=== PATIENT | male | born 1965 | race Caucasian/White ===

== ENCOUNTER 2017-06-26 12:40 | Emergency (ER) | payer OTHER ==
--- NOTE | 2017-06-26 12:56 | EDM.PDOC ---
ED HPI GENERAL MEDICAL PROBLEM - General Chief Complaint: Abdominal Pain Stated Complaint: ABDOMINAL PAIN Time Seen by Provider: 06/26/17 12:49 Source of Information: Reports: Patient, Family, RN, RN Notes Reviewed History Limitations: Reports: No Limitations - History of Present Illness INITIAL COMMENTS - FREE TEXT/NARRATIVE: Porter is a 52 yo male who presents to the ED due to generalized abd pain that started around 1600 yesterday. Describes the pain as constant and stabbing pain. Reports slight nausea off and on. Denies emesis. Reports that he took a stool softener at home as he thought he maybe constipated. He reports that he had a BM after but his pain did not improve. He reports that his gave him an antacid and some aspirin which helped for about an hour, but then symptoms returned. Denies chest pain, shortness of breath, sore throat, fever, blood in his stools, or diarrhea. Onset Date: 06/25/17 Onset Time: 16:30 Duration: Constant, Getting Worse Location: Reports: Abdomen Quality: Reports: Burning, Stabbing Severity: Severe Improves with: Reports: Medication Worsens with: Reports: None Associated Symptoms: Reports: Loss of Appetite, Nausea/Vomiting Middle Abdominal Pain Score (Numeric/FACES): 9 - Related Data Allergies Allergy/AdvReac Type Severity Reaction Status Date / Time No Known Allergies Allergy Verified 06/26/17 12:48 Home Meds: Home Meds . [No Known Home Meds] 06/26/17 [History] Past Medical History - Past Health History Medical/Surgical History: Denies Medical/Surgical History Social & Family History - Family History Family Medical History: Noncontributory - Tobacco Use Smoking Status *Q: Never Smoker - Living Situation & Occupation Living situation: Reports: Occupation: Employed ED ROS GENERAL - Review of Systems Review Of Systems: ROS reveals no pertinent complaints other than HPI. ED EXAM, GI/ABD - Physical Exam Exam: See Below Exam Limited By: No Limitations General Appearance: Alert, Moderate Distress, Other (Patient noted to be curled up on the bed on assessment appears uncomfortable ) Eyes: Bilateral: Normal Appearance Ears: Normal External Exam, Normal Canal, Hearing Grossly Normal, Normal TMs Nose: Normal Inspection, Normal Mucosa, No Blood Throat/Mouth: Normal Inspection, Normal Lips, Normal Teeth, Normal Gums, Normal Oropharynx, Normal Voice, No Airway Compromise Head: Atraumatic, Normocephalic Neck: Normal Inspection, Supple, Non-Tender, Full Range of Motion Respiratory/Chest: No Respiratory Distress, Lungs Clear, Normal Breath Sounds, No Accessory Muscle Use, Chest Non-Tender Cardiovascular: Normal Peripheral Pulses, Regular Rate, Rhythm, No Edema, No Gallop, No JVD, No Murmur, No Rub GI/Abdominal Exam: Normal Bowel Sounds, Soft, No Organomegaly, No Distention, No Abnormal Bruit, No Mass, Tender (Generalized tenderness noted to abd with palpation) (Male) Exam: Deferred Rectal (Males) Exam: Deferred Back Exam: Normal Inspection, Full Range of Motion, NT Extremities: Normal Inspection, Normal Range of Motion, Non-Tender, Normal Capillary Refill, No Pedal Edema Neurological: Alert, Oriented, CN II-XII Intact, Normal Cognition, Normal Gait, Normal Reflexes, No Motor/Sensory Deficits Psychiatric: Normal Affect, Normal Mood Skin Exam: Warm, Dry, Intact, Normal Color, No Rash Lymphatic: No Adenopathy Course - Vital Signs Last Recorded V/S: Last Vital Signs Temp 36.1 C 06/26/17 14:37 Pulse 94 06/26/17 14:37 Resp 18 06/26/17 14:37 BP 138/60 06/26/17 14:37 Pulse Ox 100 06/26/17 14:37 - Orders/Labs/Meds Orders: Active Orders 24 hr Category Date Time Status Peripheral IV Care [RC] . DIRECTED Care 06/26/17 12:59 Active Abdomen Pelvis w Cont [CT] Urgent Exams 06/26/17 13:43 Taken HYDROmorphone [Dilaudid] Med 06/26/17 14:54 Once 1 mg IVPUSH ONETIME ONE Piperacillin/Tazobactam [Zosyn] 3.375 gm Med 06/26/17 14:33 Active Sodium Chloride 0.9% [Normal Saline] 100 ml IV ONETIME Sodium Chloride 0.9% @ 150 MLS/HR (1000ml) Med 06/26/17 15:00 Ordered Sodium Chloride 0.9% [Normal Saline] 1,000 ml IV ASDIRECTED Sodium Chloride 0.9% [Saline Flush] Med 06/26/17 12:59 Active 10 ml FLUSH ASDIRECTED PRN Peripheral IV Insertion Adult [OM.PC] Stat Oth 06/26/17 12:58 Ordered Medication Orders Piperacillin Sod/Tazobactam (Sod 3.375 gm/ Sodium Chloride) 100 mls @ 200 mls/ hr IV ONETIME ONE Stop: 06/26/17 15:02 Sodium Chloride (Saline Flush) 10 ml FLUSH ASDIRECTED PRN PRN Reason: Keep Vein Open Last Admin: 06/26/17 13:07 Dose: 10 ml Labs: Laboratory Tests 06/26/17 06/26/17 06/26/17 Range/Units 12:43 13:09 13:09 WBC 10.3 H (5.0-10.0) 10^3/uL RBC 5.62 (4.6-6.2) 10^6/uL Hgb 17.7 (14.0-18.0) g/dL Hct 49.2 (40.0-54.0) % MCV 87.5 (80-100) fL MCH 31.5 (27.0-34.0) pg MCHC 36.0 H (33.0-35.0) g/dL Plt Count 161 (150-450) 10^3/uL Neut % (Auto) 77.3 H (42.2-75.2) % Lymph % (Auto) 13.9 L (20.5-50.1) % Antelope % (Auto) 7.5 (2-8) % Eos % (Auto) 1.1 (1.0-3.0) % Baso % (Auto) 0.2 (0.0-1.0) % Sodium 138 (135-145) mmol/L Potassium 3.8 (3.6-5.0) mmol/L Chloride 102 (101-111) mmol/L Carbon Dioxide 27.0 (21.0-31.0) mmol/L Anion Gap 12.8 BUN 16 (7-18) mg/dL Creatinine 1.1 (0.6-1.3) mg/dL Est Cr Clr Drug Dosing 83.67 mL/min Estimated GFR (MDRD) > 60 BUN/Creatinine Ratio 14.54 Glucose 102 (74-105) mg/dL Lactic Acid (0.5-2.2) mmol/L Calcium 9.2 (8.4-10.2) mg/dl Total Bilirubin 1.7 H (0.2-1.0) mg/dL AST 44 H (10-42) IU/L ALT 103 H (10-60) IU/L Alkaline Phosphatase 75 (42-121) IU/L Total Protein 7.2 (6.7-8.2) g/dl Albumin 4.4 (3.2-5.5) g/dl Globulin 2.8 Albumin/Globulin Ratio 1.57 Amylase 52 (28-100) U/L Lipase 20 L (22-51) U/L Urine Color Straw (YELLOW) Urine Appearance Clear (CLEAR) Urine pH 5.5 (5.0-9.0) Ur Specific Beatty 1.025 (1.005-1.030) Urine Protein Trace H (NEGATIVE) Urine Glucose (UA) Negative (NEGATIVE) Urine Ketones 15 H (NEGATIVE) Urine Occult Blood Negative (NEGATIVE) Urine Nitrite Negative (NEGATIVE) Urine Bilirubin Small H (NEGATIVE) Urine Urobilinogen 0.2 (0.2-1.0) mg/dL Ur Leukocyte Esterase Negative (NEGATIVE) Urine RBC Not seen /HPF Urine WBC Not seen (0-5/HPF) /HPF Ur Epithelial Cells Rare /HPF Amorphous Sediment Rare (0/HPF) /HPF Urine Bacteria Not seen (0-FEW/HPF) /HPF Fine Granular Casts Few H (0/LPF) /LPF Urine Mucus Many H /LPF /12/06 Range/Units 13:09 WBC (5.0-10.0) 10^3/uL RBC (4.6-6.2) 10^6/uL Hgb (14.0-18.0) g/dL Hct (40.0-54.0) % MCV (80-100) fL MCH (27.0-34.0) pg MCHC (33.0-35.0) g/dL Plt Count (150-450) 10^3/uL Neut % (Auto) (42.2-75.2) % Lymph % (Auto) (20.5-50.1) % Antelope % (Auto) (2-8) % Eos % (Auto) (1.0-3.0) % Baso % (Auto) (0.0-1.0) % Sodium (135-145) mmol/L Potassium (3.6-5.0) mmol/L Chloride (101-111) mmol/L Carbon Dioxide (21.0-31.0) mmol/L Anion Gap BUN (7-18) mg/dL Creatinine (0.6-1.3) mg/dL Est Cr Clr Drug Dosing mL/min Estimated GFR (MDRD) BUN/Creatinine Ratio Glucose (74-105) mg/dL Lactic Acid 1.2 (0.5-2.2) mmol/L Calcium (8.4-10.2) mg/dl Total Bilirubin (0.2-1.0) mg/dL AST (10-42) IU/L ALT (10-60) IU/L Alkaline Phosphatase (42-121) IU/L Total Protein (6.7-8.2) g/dl Albumin (3.2-5.5) g/dl Globulin Albumin/Globulin Ratio Amylase (28-100) U/L Lipase (22-51) U/L Urine Color (YELLOW) Urine Appearance (CLEAR) Urine pH (5.0-9.0) Ur Specific Beatty (1.005-1.030) Urine Protein (NEGATIVE) Urine Glucose (UA) (NEGATIVE) Urine Ketones (NEGATIVE) Urine Occult Blood (NEGATIVE) Urine Nitrite (NEGATIVE) Urine Bilirubin (NEGATIVE) Urine Urobilinogen (0.2-1.0) mg/dL Ur Leukocyte Esterase (NEGATIVE) Urine RBC /HPF Urine WBC (0-5/HPF) /HPF Ur Epithelial Cells /HPF Amorphous Sediment (0/HPF) /HPF Urine Bacteria (0-FEW/HPF) /HPF Fine Granular Casts (0/LPF) /LPF Urine Mucus /LPF Meds: Medications Generic Name Dose Route Start Last Admin Trade Name Freq PRN Reason Stop Dose Admin Piperacillin Sod/Tazobactam 100 mls @ 200 mls/hr 06/26/17 14:33 Sod 3.375 gm/ Sodium Chloride IV 06/26/17 15:02 ONETIME ONE Sodium Chloride 10 ml 06/26/17 12:59 06/26/17 13:07 Saline Flush FLUSH 10 ml ASDIRECTED PRN Administration Keep Vein Open Discontinued Medications Generic Name Dose Route Start Last Admin Trade Name Freq PRN Reason Stop Dose Admin Hydromorphone HCl 1 mg 06/26/17 13:01 06/26/17 13:06 Dilaudid IVPUSH 06/26/17 13:02 1 mg ONETIME ONE Administration Hydromorphone HCl 1 mg 06/26/17 13:55 06/26/17 13:58 Dilaudid IVPUSH 06/26/17 13:56 1 mg ONETIME ONE Administration Sodium Chloride 1,000 mls @ 999 mls/hr 06/26/17 13:00 06/26/17 13:06 Normal Saline IV 06/26/17 14:00 999 mls/hr .BOLUS ONE Administration Iopamidol 100 ml 06/26/17 13:44 06/26/17 14:05 Isovue-300 (61%) IVPUSH 06/26/17 13:45 100 ml ONETIME ONE Administration Ondansetron HCl 4 mg 06/26/17 13:00 06/26/17 13:07 Zofran IV 06/26/17 13:01 4 mg ONETIME ONE Administration Ondansetron HCl 4 mg 06/26/17 14:42 Zofran IV 06/26/17 14:43 ONETIME ONE - Radiology Interpretation Free Text/Narrative:: CT Abd/Pelvis with IV contrast: acute appendicitis per Radiologist report. CT Results Date: 06/26/17 CT Results Time: 14:34 Departure - Departure Time of Disposition: 14:52 Disposition: DC/Tfer to [facility] Condition: Fair Clinical Impression: Strep pharyngitis, Elevated liver enzymes Appendicitis Qualifiers: Appendicitis type: acute appendicitis Acute appendicitis type: unspecified acute appendicitis type Qualified Code(s): K35.80 - Unspecified acute appendicitis - Discharge Information Referrals: Souleymane Bowen MD [Primary Care Provider] - Forms: ED Department Discharge, Interfacility Transfer EMTALA - My Orders Last 24 Hours: My Active Orders 06/26/17 12:58 Peripheral IV Insertion Adult [OM.PC] Stat 06/26/17 12:59 Peripheral IV Care [RC] . DIRECTED Sodium Chloride 0.9% [Saline Flush] 10 ml FLUSH ASDIRECTED PRN 06/26/17 13:43 Abdomen Pelvis w Cont [CT] Urgent 06/26/17 14:33 Piperacillin/Tazobactam [Zosyn] 3.375 gm Sodium Chloride 0.9% [Normal Saline] 100 ml IV ONETIME 06/26/17 14:54 HYDROmorphone [Dilaudid] 1 mg IVPUSH ONETIME ONE 06/26/17 15:00 Sodium Chloride 0.9% @ 150 MLS/HR (1000ml) Sodium Chloride 0.9% [Normal Saline] 1,000 ml IV ASDIRECTED - Assessment/Plan Last 24 Hours: My Active Orders 06/26/17 12:58 Peripheral IV Insertion Adult [OM.PC] Stat 06/26/17 12:59 Peripheral IV Care [RC] . DIRECTED Sodium Chloride 0.9% [Saline Flush] 10 ml FLUSH ASDIRECTED PRN 06/26/17 13:43 Abdomen Pelvis w Cont [CT] Urgent 06/26/17 14:33 Piperacillin/Tazobactam [Zosyn] 3.375 gm Sodium Chloride 0.9% [Normal Saline] 100 ml IV ONETIME 06/26/17 14:54 HYDROmorphone [Dilaudid] 1 mg IVPUSH ONETIME ONE 06/26/17 15:00 Sodium Chloride 0.9% @ 150 MLS/HR (1000ml) Sodium Chloride 0.9% [Normal Saline] 1,000 ml IV ASDIRECTED
[2017-06-26] MEDS ORDERED: Sodium Chloride 0.9% 10 ML Syringe FLUSH PRN (12:59)
[2017-06-26] MEDS ORDERED: Ondansetron 4 MG/2 ML SDV IV ONE (13:00)
[2017-06-26] MEDS ORDERED: Sodium Chloride 0.9% 1,000 ML IV ONE (13:00)
[2017-06-26] MEDS ORDERED: HYDROmorphone 0.5 MG/0.5 ML Syringe IVPUSH ONE ×3 (13:01→14:54)
[2017-06-26 13:35] LABS: ANION GAP 12.8; CHLORIDE,CL 102 mmol/L (101-111); SODIUM,NA 138 mmol/L (135-145)
[2017-06-26] MEDS ORDERED: Iopamidol 612 MG/ML 100 ML Bottle IVPUSH ONE (13:44)
[2017-06-26] MEDS ORDERED: Piperacillin/Tazobactam 3.375 GM in Sodium Chloride 0.9% 100 ML IV ONE (14:33)
[2017-06-26] MEDS: Ondansetron 4 MG/2 ML SDV IV ONE ×2 (14:54→14:56)
[2017-06-26] MEDS ORDERED: Sodium Chloride 0.9% 1,000 ML IV SCH (15:00)
--- NOTE | 2017-06-26 15:10 | CT ---
CLINICAL HISTORY: 52-year-old 220 pound male experiencing periumbilical pain that goes to the pelvis (WBC 10,300). SCAN TECHNIQUE: Volume acquisition of data from an emergency CT scan of the abdomen and pelvis obtain ed without oral contrast but during the intravenous administration 100 cc nonionic Isovue contrast (3 cc/sec via injector) while the patient was lying supine on the Siemens multislice scanner [place], [place]. All data archived in the PACS system for storage, reformatting axial/sagittal/coronal planes and study. INTERPRETATION: Abnormal. 1. *Long distended appendix lower mid abdomen with several calcifications impacted at the origin from the cecum (most optimally defined on coronal images #35, axial scan image #58, sagittal #46) extends down to the top of the urinary bladder, midline pelvis. 2. Appendix measures 12 mm in greatest diameter and is associated with subtle inflammatory "dirty" pe ritoneal fat in the RLQ. No periappendiceal abscess or mechanical SBO. No sign of ascites or free in traperitoneal air. 3. Fatty liver and borderline splenomegaly. Normal gallbladder, stomach, pancreas, adrenal glands and kidneys. Normal heart. 4. Atheromatous calcification scattered across normal caliber aortoiliac vessels. No sign of aneurysm or retroperitoneal dissection. 5. Lung bases clear. Prostate and seminal vesicles unremarkable. CONCLUSION: Appendicoliths and acute appendicitis. NOTE: Emergency room provider called with report 1430 hours, 26 June 2017.
== END 2017-06-26 15:33 ==
LOC: DL.ED 12:40
DX: K35.80 Unspecified acute appendicitis (principal); J02.0 Streptococcal pharyngitis; R74.8 Abnormal levels of other serum enzymes
CPT/HCPCS: 36415; 74177; 80053; 81001; 82150; 83605; 83690; 85025; 87430; 96361; 96365; 96375; 96376; 99285; J1170; J2405; J2543; J7030; J7050; Q9967

== ENCOUNTER 2022-08-25 02:57 | Emergency (ER) | payer OTHER ==
[2022-08-25] MEDS ORDERED: Aspirin 81 MG Tab.Chew PO ONE ×2 (03:12→03:20)
[2022-08-25] MEDS ORDERED: Nitroglycerin 0.4 MG Tab.SL SL ONE ×3 (03:14→03:31)
[2022-08-25 03:25] LABS: BASOPHILS PERCENT AUTO 0.5 % (0.0-1.0); EOSINOPHILS PERCENT AUTO 3.3 % (1.0-3.0); HEMATOCRIT 49.7 % (40.0-54.0); HEMOGLOBIN 17.5 g/dL (14.0-18.0); LYMPHOCYTES PERCENT AUTO 39.8 % (20.5-50.1); MEAN CORPUSCULAR HEMOGLOBIN 31.3 pg (27.0-34.0); MEAN CORPUSCULAR HGB CONC 35.2 g/dL (33.0-35.0); MEAN CORPUSCULAR VOLUME 88.8 fL (80-100); MONOCYTES PERCENT AUTO 10.8 % (2-8); NEUTROPHILS PERCENT AUTO 45.6 % (42.2-75.2); PLATELET COUNT,PLT 180 10^3/uL (150-450); WHITE BLOOD CELL COUNT,WBC 6.6 10^3/uL (5.0-10.0)
[2022-08-25 03:37] LABS: B-TYPE NATRIURETIC PEPTIDE,BNP < 5 pg/ml (0-100)
[2022-08-25] MEDS ORDERED: GI Cocktail Oral Solution 30 ML PO ONE (03:37)
[2022-08-25 03:49] LABS: A/G RATIO 1.3; ALANINE AMINOTRANSFERASE,ALT 82 U/L (16-63); ALBUMIN 4.4 g/dL (3.4-5.0); ALKALINE PHOSPHATASE 101 U/L (46-116); AMYLASE 62 U/L (25-115); ANION GAP 11.8 mEq/L (7-13); ASPARTATE AMNIOTRANSFERASE,AST 33 U/L (15-37); BILIRUBIN TOTAL 0.7 mg/dL (0.2-1.0); BLOOD UREA NITROGEN,BUN 20 mg/dL (7-18); BUN/CREATININE RATIO 16.8 (No establ ref range); CALCIUM 9.7 mg/dL (8.5-10.1); CARBON DIOXIDE,CO2 29 mmol/L (21-32); CHLORIDE,CL 101 mmol/L (98-107); CREATININE 1.19 mg/dL (0.70-1.30); EST CRCL DRUG DOSING (CG) 70.72 mL/min; GLUCOSE RANDOM 119 mg/dL (70-99); LIPASE 142 U/L (73-393); MAGNESIUM 2.1 mg/dL (1.8-2.4); POTASSIUM,K 3.8 mmol/L (3.5-5.1); PROTEIN TOTAL,TP 7.7 g/dL (6.4-8.2); SODIUM,NA 138 mmol/L (136-145); TSH ULTRASENSITIVE 3.67 uIU/mL (0.36-3.74)
[2022-08-25 03:51] LABS: ESTIMATED GFR 71 mL/min (>=60)
[2022-08-25 03:52] LABS: C-REACTIVE PROTEIN < 0.2 mg/dL (0.0-0.9); ETHANOL BLOOD MEDICAL < 3 mg/dL (0)
[2022-08-25 03:56] LABS: PROTHROMBIN TIME 10.1 SEC (9.0-12.0); PTT,PARTIAL THROMBOPLSTIN TIME 26.4 SEC (22.0-34.0)
[2022-08-25] MEDS ORDERED: fentaNYL 100 MCG/2 ML SDV IVPUSH ONE (03:57)
[2022-08-25] MEDS ORDERED: Ondansetron 4 MG/2 ML SDV IVPUSH ONE (03:57)
[2022-08-25] MEDS ORDERED: Glucagon,Human Recombinant 1 MG Vial IVPUSH ONE (04:41)
[2022-08-25] MEDS ORDERED: Lactated Ringers 1,000 ML IV ONE (04:57)
[2022-08-25] MEDS ORDERED: Iopamidol 612 MG/ML 100 ML Bottle IVPUSH ONE (04:57)
[2022-08-25] MEDS ORDERED: HYDROmorphone 1 MG/ML Syringe IVPUSH ONE (05:22)
[2022-08-25] MEDS ORDERED: Iopamidol 755 Mg/ML 100 ML Bottle IVPUSH ONE (05:25)
[2022-08-25 07:01] LABS: CORONAVIRUS COVID-19 NAA NEGATIVE (NEGATIVE); INFLUENZA A NAA NEGATIVE (NEGATIVE); INFLUENZA B NAA NEGATIVE (NEGATIVE); RESPIRATORY SYNCYTIAL VIR NAA NEGATIVE (NEGATIVE)
[2022-08-25] MEDS ORDERED: Heparin Sodium 5,000 Units/ML Vial IVPUSH ONE (07:01)
[2022-08-25] MEDS ORDERED: Heparin Sodium/0.45% NaCl 500 ML ONE (07:03)
[2022-08-25] MEDS ORDERED: Heparin Sodium 5,000 Units/ML Vial ONE (07:03)
[2022-08-25] MEDS ORDERED: Clopidogrel 75 MG Tab PO ONE (07:09)
[2022-08-25] MEDS ORDERED: Tenecteplase 50 MG Kit IVPUSH ONE (07:10)
[2022-08-25] MEDS ORDERED: Tenecteplase 50 MG Kit ONE (07:11)
[2022-08-25] MEDS ORDERED: Heparin Sodium/0.45% NaCl 25,000 UNITS/500 ML BAG IV SCH (07:15)
[2022-08-25] MEDS ORDERED: Morphine 2 MG/ML SYRINGE IVPUSH ONE (07:30)
[2022-08-25] MEDS ORDERED: Morphine 4 MG/ML Syringe IVPUSH ONE (07:48)
[2022-08-25] MEDS ORDERED: Nitroglycerin/D5W 25 MG/250 ML BOTTLE ONE (07:50)
[2022-08-25] MEDS ORDERED: Nitroglycerin/D5W 25 MG/250 ML BOTTLE IV SCH (08:00)
== END 2022-08-25 08:13 ==
LOC: DL.ED 02:57
DX: I21.3 ST elevation (STEMI) myocardial infarction of unspecified site (principal); Z20.822 Contact with and (suspected) exposure to COVID-19
CPT/HCPCS: 0241U; 36415; 71045; 71260; 74177; 80053; 80307; 82150; 83605; 83690; 83735; 83880; 84443; 84484; 85025; 85379; 85610; 85730; 86140; 92977; 93005; 93010; 96361; 96365; 96375; 96376; 99285; 99285-25; A9270-GY; J1170; J1610; J1644; J2270; J2405; J3010; J3101; J3490; J7120; Q9967